=== PATIENT | female | born 1975 | race African-American/Black ===

== ENCOUNTER → 2020-02-25 | Outpatient (CLI) | payer OTHER, BC ==
[~2020-02-25] MED LIST: ALBUTEROL INH INH; ALPRAZOLAM 0.0.25 M1; AMOXICILLIN 50500 MG PO; CENTRUM COMPLE1 EACH PO; CHERATUSSIN DA480 ML PO; CIPROFLOXACIN500 M1 PO; CODEINE 10 MG-473 ML PO; DIFLUCAN150 MG PO; DOXYCYCLINE; EXCEDRIN CAPLE1 EACH; FLEXERIL PO; HYDROCHLOROTH12.5 M1 PO; HYDROCODON-ACET15 ML PO; LORTAB 5 MG/5001 TA1 PO; MIRALAX255 GM PO; NOHOMEMEDICATIONS; NORCO 5-325 TA1 EACH PO; NORFLEX100 MG PO; NUVARING VAGIN1 EACH VG; PERCOCET 5-3251 EACH PO; PREDNISONE10 MG PO; PYRIDIUM200 MG PO; TESSALON PERLE100 MG PO; ULTRAM 50MG TAB50 MG PO; VENTOLIN HFA 1818 GM INH; VICOPROFEN 2001 EACH PO; XANAX 0.5 MG0.5 M1 PO; ZANTAC 150MG T150 M1 PO; ZOFRAN ODT4 MG PO; ZPAK PO
== END ==
LOC: CANPRECLI → SJCVCIMAG 08:58
DX: Z01.818 Encounter for other preprocedural examination (principal); R94.31 Abnormal electrocardiogram [ECG] [EKG]; I10 Essential (primary) hypertension

== ENCOUNTER → 2020-02-25 | Outpatient (CLI) | payer OTHER | LOC: SJCVCIMAG 16:00 | PROVIDERS: ATTEND Family Medicine | DX: Z01.818 Encounter for other preprocedural examination (principal); I10 Essential (primary) hypertension; R94.31 Abnormal electrocardiogram [ECG] [EKG] ==